=== PATIENT | female | born 1965 | race Caucasian/White ===

== ENCOUNTER 2018-05-10 19:24 | Emergency (ER) | payer MEDICAID ==
[2018-05-10 19:35] VITALS: TEMP 98.1
[2018-05-10 20:26] VITALS: RESP 19
[2018-05-10] MEDS ORDERED: Aspirin 325 mg EC Tablets PO STA (20:31)
[2018-05-10 21:34] LABS: BASO # 0.1 K/uL (0.0-0.2); BASO % 1.3 % (0.0-2.0); EOS # 0.2 K/uL (0.0-0.7); EOS % 5.4 % (0.0-4.0); HEMOGLOBIN 12.6 g/dL (11.0-16.0); LYMPH # 2.5 K/uL (1.0-4.3); LYMPH % 56.4 % (20.0-40.0); MEAN CELL VOLUME 85.1 fL (81.0-99.0); MEAN CORPUSCULAR HEMOGLOBIN 28.2 pg (27.0-31.0); MEAN CORPUSCULAR HGB CONC 33.1 g/dL (33.0-37.0); MEAN PLATELET VOLUME 9.1 fL (7.2-11.7); MONO # 0.3 K/uL (0.0-0.8); MONO % 7.3 % (0.0-10.0); NEUT # 1.3 K/uL (1.8-7.0); NEUT % 29.6 % (50.0-75.0); NRBC % 0.1 % (0.0-2.0); RBC 4.47 Mil/uL (3.80-5.20); RED CELL DISTRIBUTION WIDTH 12.8 % (11.5-14.5); WHITE BLOOD COUNT 4.5 K/uL (4.8-10.8)
[2018-05-10 21:48] LABS: ALB/GLOB RATIO 1.5 (1.0-2.1); ALBUMIN 4.7 g/dL (3.5-5.0); ALT/SGPT 32 U/L (9-52); AST/SGOT 35 U/L (14-36); BLOOD UREA NITROGEN 15 mg/dL (7-17); CALCIUM 9.7 mg/dl (8.6-10.4); GFR NON-AFRICAN AMERICAN > 60
[2018-05-10 21:51] LABS: URINE BILIRUBIN NEGATIVE (NEGATIVE); URINE BLOOD NEGATIVE (NEGATIVE); URINE CLARITY Hazy (Clear); URINE GLUCOSE (UA) NORMAL (Normal); URINE LEUKOCYTE ESTERASE NEG Leu/uL (Negative); URINE PROTEIN NEGATIVE (NEGATIVE); URINE UROBILINOGEN NORMAL mg/dL (0.2-1.0)
[2018-05-10 21:59] LABS: B-TYPE NATRIURETIC PEPTIDE 17.6 pg/mL (0-900)
--- NOTE | 2018-05-10 22:08 | C.PDOC ---
History Of Present Illness 53 year female presents to ED with complaint of upper thoracic back pain that causes SOB and radiates into chest and left arm. Patient also complains of left lower leg cramping and is taking nothing for it. Patient denies any numb ness or weakness. Time Seen by Provider: 05/10/18 20:18 Chief Complaint (Nursing): Shortness Of Breath History Per: Patient History/Exam Limitations: no limitations Onset/Duration Of Symptoms: Hrs (4) Current Symptoms Are (Timing): Still Present Quality: "Pain" Associated Symptoms: Chest Pain, Leg/Calf Pain (left lower leg) Past Medical History Reviewed: Historical Data, Nursing Documentation, Vital Signs Vital Signs: Last Vital Signs Temp 98.1 F 05/10/18 19:33 Pulse 74 05/10/18 19:33 Resp 19 05/10/18 20:00 BP 137/85 05/10/18 19:33 Pulse Ox 99 05/10/18 20:00 - Medical History PMH: Hypercholesterolemia, Osteoporosis Surgical History: No Surg Hx - Social History Hx Alcohol Use: No Hx Substance Use: No Review Of Systems Constitutional: Negative for: Fever, Chills, Weakness Cardiovascular: Positive for: Chest Pain Respiratory: Positive for: Shortness of Breath. Negative for: Cough Musculoskeletal: Positive for: Arm Pain (left arm), Back Pain (upper thoracic), Leg Pain (left lower leg cramping) Neurological: Negative for: Weakness, Numbness, Dizziness Physical Exam - Physical Exam Appears: Well, Non-toxic, No Acute Distress Skin: Normal Color, Warm, Dry Head: Atraumatic, Normacephalic Neck: Normal ROM, Supple Chest: Symmetrical, No Deformity Cardiovascular: Rhythm Regular, No Murmur Back: Paraspinal Tenderness (bilateral, thoracic area consist with lower t rapezius) Extremity: Bilateral: Atraumatic, Normal Color And Temperature Neurological/Psych: Oriented x3, Normal Speech, Normal Cognition ED Course And Treatment - Laboratory Results Result Diagrams: 05/10/18 21:22 05/10/18 21: Lab Results: D-Dimer, Quantitative < 200 ng/mlDDU (0-243) 05/10/18 21:22 Troponin I < 0.0120 ng/mL (0.00-0.120) 05/10/18 21:22 NT-Pro-B Natriuret Pep 17.6 pg/mL (0-900) 05/10/18 21: Total Bilirubin 0.2 mg/dL (0.2-1.3) 05/10/18 21: AST 35 U/L (14-36) 05/10/18 21: ALT 32 U/L (9-52) 05/10/18 21: Alkaline Phosphatase 122 U/L (38-126) 05/10/18 21: Total Protein 7.8 g/dL (6.3-8.3) 05/10/18 21: Albumin 4.7 g/dL (3.5-5.0) 05/10/18 21: Globulin 3.1 gm/dL (2.2-3.9) 05/10/18: Albumin/Globulin Ratio 1.5 (1.0-2.1) 05/10/18 21: Urine Color yellow (YELLOW) 05/10/18 21:25 Urine Clarity Hazy (Clear) 05/10/18 21:25 Urine pH 8.0 (5.0-8.0) 05/10/18 21:25 Ur Specific Cable 1.005 (1.003-1.030) 05/10/18 21:25 Urine Protein Negative mg/dL (NEGATIVE) 05/10/18 21:25 Urine Glucose (UA) Normal mg/dL (Normal) 05/10/18 21:25 Urine Ketones Negative mg/dL (NEGATIVE) 05/10/18 21:25 Urine Blood Negative (NEGATIVE) 05/10/18 21:25 Urine Nitrate Negative (NEGATIVE) 05/10/18 21:25 Urine Bilirubin Negative (NEGATIVE) 05/10/18 21:25 Urine Urobilinogen Normal mg/dL (0.2-1.0) 05/10/18 21:25 Ur Leukocyte Esterase Neg Geena/uL (Negative) 05/10/18 21:25 Urine WBC (Auto) < 1 /hpf (0-5) 05/10/18 21:25 Lab Interpretation: Normal (trop/bnp/d-dimer neg, UA neg.) ECG Rhythm: Sinus Rhythm ECG Interpretation: Normal Rate From EC O2 Sat by Pulse Oximetry: 99 (RA) - Radiology CXR: Interpreted by Me, Viewed By Me CXR Interpretation: Yes: No Acute Disease Progress Note: Labs ordered with d-dimer and UA for patient. EKG and CXR ordered for patient. Aspirin and toradol given to patient. Reevaluation Time: 22:18 Reassessment Condition: Improved Medical Decision Making Medical Decision Making: normal w/u musculoskeletal discomforts Disposition Doctor Will See Patient In The: Office Counseled Patient/Family Regarding: Studies Performed, Diagnosis - Disposition Disposition: HOME/ ROUTINE Disposition Time: 22:18 Condition: GOOD Forms: [facility] (Danish) - Clinical Impression Clinical Impression: Back pain - Scribe Statement The provider has reviewed the documentation as recorded by the Scribe (Clarice Denise) All medical record entries made by the Scribe were at my direction and personally dictated by me. I have reviewed the chart and agree that the record accurately reflects my personal performance of the history, physical exam, medical decision making, and the department course for this patient. I have also personally directed, reviewed, and agree with the discharge instructions and disposition.
[2018-05-10 22:12] VITALS: BP 128/76; PULSE 71
[2018-05-10 22:13] VITALS: O2SAT 99
--- NOTE | 2018-05-11 09:07 | RAD ---
Date of service: 05/10/2018 HISTORY: SOB COMPARISON: No prior. TECHNIQUE: Chest PA and lateral FINDINGS: LUNGS: No active pulmonary disease. PLEURA: No significant pleural effusion identified. No pneumothorax apparent. CARDIOVASCULAR: No aortic atherosclerotic calcification present. Normal cardiac size. No pulmonary vascular congestion. OSSEOUS STRUCTURES: Thoracic spondylosis VISUALIZED UPPER ABDOMEN: Normal. OTHER FINDINGS: None. IMPRESSION: No acute cardiopulmonary pathology noted.. Thoracic spondylosis.
== END 2018-05-10 22:39 | disposition home or self-care (01) ==
LOC: C.ER 19:24
DX: M54.6 Pain in thoracic spine (principal)
CPT/HCPCS: 71046; 80053; 81001; 83880; 84484; 85025; 85378; 93005; 96374; 99284; J1885